=== PATIENT | male | born 1970 | race Caucasian/White ===

== ENCOUNTER 2018-12-15 19:18 | Inpatient (IN) | payer MEDICARE, OTHER ==
--- OUTSIDE RECORDS SUMMARY | 2018-12-15 19:20 | XMS REPORT ---
:1970 [facility] [address] [place] [address] Dr. Verdin [address] [place] [id number] Care Team Providers Name Role Phone Unavailable Unavailable Unavailable Problems This patient has no known problems. Allergies, Adverse Reactions, Alerts This patient has no known allergies or adverse reactions. Medications This patient has no known medications.
[2018-12-15 20:08] LABS: Absolute Lymphocytes (CBC) 1.8 K/uL (0.7-4.9); Eosinophils % 2.3 % (0-4.4); Hematocrit 43.8 % (39.6-49.0); MPV 8.6 fL (7.6-11.3); Monocytes % 6.2 % (3.3-12.3); RBC Red Blood Cell Count 4.96 M/uL (4.33-5.43)
[2018-12-15] MEDS ORDERED: FENTANYL CITR 100 MCG/2 ML ONE ×2 (20:26→22:26)
[2018-12-15] MEDS ORDERED: NA CHLORIDE 0.9% 1,000 ML ONE ×2 (20:27→21:58)
[2018-12-15 20:29] LABS: ALT/SGPT 26 U/L (12-78); AST/SGOT 12 U/L (15-37); Albumin 3.7 g/dL (3.4-5.0); Alkaline Phosphatase 70 U/L (45-117); BUN Blood Urea Nitrogen 15 mg/dL (7-18); Bicarbonate 25 mmol/L (21-32); Bilirubin Direct < 0.1 mg/dL (0-0.2); Bilirubin Total 0.2 mg/dL (0.2-1.0); Glucose Level 134 mg/dL (74-106); Lipase 456 U/L (73-393); Potassium 3.9 mmol/L (3.5-5.1); Protein, Total 7.1 g/dL (6.4-8.2); Sodium Level 141 mmol/L (136-145)
--- NOTE | 2018-12-15 20:42 | RAD REPORT ---
EXAM DESCRIPTION: US - Abdomen Exam Limited - 12/15/2018 8:31 pm CLINICAL HISTORY: Abdominal pain. COMPARISON: None. FINDINGS: The gallbladder is contracted limiting evaluation. A gallstone is not seen. Gallbladder wa ll is not thickened The biliary tree is normal caliber. IMPRESSION: An obvious gallstone is not seen although evaluation is limited as the gallbladder is co nsiderably contracted
--- NOTE | 2018-12-15 22:03 | ER ---
Nurse's Notes [facility] Name: Kyaw Sheldon Age: 48 yrs Sex: Male : 1970 Arrival Date: 12/15/2018 Time: 19:28 Bed 28 Private MD: Diagnosis: Upper abdominal pain, unspecified;elevated lipase Presentation: 12/15 19:35 Presenting complaint: Patient states: "gall bladder attack for 3 days". Care prior to aj arrival: None. 19:35 Acuity: NEYDA 3 19:35 Method Of Arrival: Ambulatory 23:31 Transition of care: patient was not received from another setting of care. Onset of ca1 symptoms was December 15, 2018. Risk Assessment: Do you want to hurt yourself or someone else? Patient reports no desire to harm self or others. Initial Sepsis Screen: Does the patient meet any 2 criteria? No. Patient's initial sepsis screen is negative. Does the patient have a suspected source of infection? No. Patient's initial sepsis screen is negative. Triage Assessment: 19:36 General: Appears in no apparent distress. uncomfortable, Behavior is calm, cooperative, aj appropriate for age. Pain: Complains of pain in epigastric area and right upper quadrant. Neuro: Level of Consciousness is awake, alert, obeys commands, Oriented to person, place, time, situation, Appropriate for age. Respiratory: Airway is patent Respiratory effort is even, unlabored, Respiratory pattern is regular, symmetrical. GI: Reports upper abdominal pain, nausea, vomiting. Derm: Skin is intact, is healthy with good turgor, Skin is pink, warm \\T\\ dry. normal. Historical: - Allergies: 19:36 No Known Allergies; aj - Immunization history:: Adult Immunizations up to date. - Ebola Screening: : Patient negative for fever greater than or equal to 101.5 degrees Fahrenheit, and additional compatible Ebola Virus Disease symptoms Patient denies exposure to infectious person Patient denies travel to an Ebola-affected area in the 21 days before illness onset No symptoms or risks identified at this time. - Social history:: Smoking status: Patient uses tobacco products, smokes one-half pack cigarettes per day. Screenin:45 Abuse screen: Denies threats or abuse. Denies injuries from another. Nutritional ca1 screening: No deficits noted. Tuberculosis screening: No symptoms or risk factors identified. Fall Risk IV access (20 points). Assessment: 19:45 General: Appears in no apparent distress. comfortable, Behavior is calm, cooperative, ca1 appropriate for age. Pain: Complains of pain in abdomen and right upper quadrant and epigastric area Pain radiates to back Pain currently is 9 out of 10 on a pain scale. Quality of pain is described as sharp, stabbing, Pain began 2-3 days ago. Is continuous, Aggravated by eating. Neuro: Level of Consciousness is awake, alert, obeys commands, Oriented to person, place, time, situation. Cardiovascular: Heart tones S1 S2 present Capillary refill < 3 seconds Patient's skin is warm and dry. Respiratory: Airway is patent Respiratory effort is even, unlabored, Respiratory pattern is regular, symmetrical, Breath sounds are clear bilaterally. GI: Abdomen is flat, non-distended, Bowel sounds present X 4 quads. 19:45 GI: Abd is soft and non tender X 4 quads. Reports nausea. ca1 19:45 : No deficits noted. No signs and/or symptoms were reported regarding the ca1 genitourinary system. EENT: No deficits noted. No signs and/or symptoms were reported regarding the EENT system. Derm: Skin is intact, is healthy with good turgor, Skin is pink, warm \\T\\ dry. Musculoskeletal: Circulation, motion, and sensation intact. Capillary refill < 3 seconds, Range of motion: intact in all extremities. 20:55 Reassessment: Patient appears in no apparent distress at this time. Patient and/or ca1 family updated on plan of care and expected duration. Pain level reassessed. Patient is alert, oriented x 3, equal unlabored respirations, skin warm/dry/pink. 21:40 Reassessment: Patient appears in no apparent distress at this time. Patient and/or ca1 family updated on plan of care and expected duration. Pain level reassessed. Patient is alert, oriented x 3, equal unlabored respirations, skin warm/dry/pink. 22:37 Reassessment: Patient appears in no apparent distress at this time. Patient and/or ca1 family updated on plan of care and expected duration. Pain level reassessed. Patient is alert, oriented x 3, equal unlabored respirations, skin warm/dry/pink. 23:45 Reassessment: Patient appears in no apparent distress at this time. Patient is alert, ca1 oriented x 3, equal unlabored respirations, skin warm/dry/pink. Vital Signs: 19:36 BP 182 / 89; Pulse 86; Resp 19; Temp 98.4; Pulse Ox 98% on R/A; Weight 104.33 kg; aj Height 6 ft. 1 in. (185.42 cm); 20:31 BP 143 / 83; Pulse 72; Resp 17; Pulse Ox 98% on R/A; ca1 21:29 BP 137 / 88; Pulse 69; Resp 17 S; Temp 98.2(O); Pulse Ox 98% on R/A; ca1 22:41 BP 117 / 80; Pulse 64; Resp 16 S; Pulse Ox 98% on R/A; ca1 23:42 BP 122 / 77; Pulse 63; Resp 18 S; Temp 98.4; Pulse Ox 99% on R/A; ca1 19:36 Body Mass Index 30.34 (104.33 kg, 185.42 cm) aj ED Course: 19:28 Patient arrived in ED. es 19:34 Charmaine Cleveland [facility]-C [facility] snw 19:34 Osmel Yost MD is Attending Physician. snw 19:36 Triage completed. aj 19:36 Arm band placed on left wrist. Patient placed in an exam room. aj 19:45 Patient has correct armband on for positive identification. Placed in gown. Bed in low ca1 position. Call light in reach. Side rails up X 1. surveillance monitor on. Pulse ox on. NIBP on. Warm blanket given. 19:53 Karena Lindsey, RN is Primary Nurse. ca1 20:00 No provider procedures requiring assistance completed. Inserted saline lock: 20 gauge ca1 in left Blood collected. 20:23 Patient taken to ultrasound. via wheelchair. ca1 20:32 US Abdomen Limited In Process Unspecified. EDMS 21:18 CT Abd/Pelvis - IV Contrast Only In Process Unspecified. EDMS 22:01 Aaron Ramirez MD is Hospitalizing Provider. snw 23:31 Patient admitted, IV remains in place. ca1 Administered Medications: 20:17 Drug: fentaNYL (PF) 50 mcg Route: IVP; Site: left antecubital; ca1 21:45 Follow up: Response: No adverse reaction; Pain is unchanged, physician notified ca1 20:32 Drug: Zofran 4 mg Route: IVP; Site: left antecubital; ca1 21:45 Follow up: Response: No adverse reaction; Nausea is decreased ca1 20:46 Drug: NS 0.9% 1000 ml Route: IV; Rate: 1 bolus; Site: left antecubital; ca1 21:45 Follow up: Urine output 230 ml; Response: No adverse reaction; IV Status: Completed ca1 infusion 21:45 Drug: NS 0.9% 1000 ml Route: IV; Rate: 125 ml/hr; Site: left antecubital; ca1 23:20 Follow up: IV Status: Infusion continued upon admission ca1 22:13 Drug: fentaNYL (PF) 50 mcg Route: IVP; Site: left antecubital; ca1 23:32 Follow up: Response: No adverse reaction; Pain is decreased ca1 22:47 Drug: Phenergan 6.25 mg Route: IVP; Site: left antecubital; ca1 23:31 Follow up: Response: No adverse reaction; Nausea is decreased ca1 Output: 21:45 Urine: 230ml; Total: 230ml. ca1 Outcome: 22:02 Decision to Hospitalize by Provider. snw 23:42 Admitted to Tele accompanied by tech, via wheelchair, room 430, with chart, Report ca1 called to Frederick Jensen RN 23:42 Condition: stable 23:42 Instructed on the need for admit. 12/16 00:19 Patient left the ED. ca1 Signatures: Dispatcher [employer] Jie Lehman, RN RN Charmaine Leyva, COMBAT SYSTEMS ENGINEER-C COMBAT SYSTEMS ENGINEER-Carly Reyez Cheryl, RN RN ca1 Corrections: (The following items were deleted from the chart) 12/15 23:52 23:45 Reassessment: Patient appears in no apparent distress at this time. Patient is ca1 alert, oriented x 3, equal unlabored respirations, skin warm/dry/pink. ca1
--- NOTE | 2018-12-15 22:04 | EDPHYS ---
Physician Documentation [facility] Name: Kyaw Sheldon Age: 48 yrs Sex: Male : 1970 Arrival Date: 12/15/2018 Time: 19:28 Bed 28 Private MD: ED Physician Osmel Yost HPI: 12/15 20:29 This 48 yrs old Male presents to ER via Ambulatory with complaints of snw Abdominal Pain. 20:29 The patient presents with abdominal pain in the upper abdomen. Onset: The snw symptoms/episode began/occurred suddenly, 3 day(s) ago, and became persistent. Associated signs and symptoms: none. The symptoms are described as sharp, shooting. Severity of pain: At its worst the pain was moderate severe. The patient has not experienced similar symptoms in the past. It is unknown whether or not the patient has recently seen a physician. + tenorio's. Historical: - Allergies: 19:36 No Known Allergies; aj - Immunization history:: Adult Immunizations up to date. - Ebola Screening: : Patient negative for fever greater than or equal to 101.5 degrees Fahrenheit, and additional compatible Ebola Virus Disease symptoms Patient denies exposure to infectious person Patient denies travel to an Ebola-affected area in the 21 days before illness onset No symptoms or risks identified at this time. - Social history:: Smoking status: Patient uses tobacco products, smokes one-half pack cigarettes per day. ROS: 20:29 Constitutional: Negative for fever, chills, and weight loss, Eyes: Negative for injury, snw pain, redness, and discharge, ENT: Negative for injury, pain, and discharge, Neck: Negative for injury, pain, and swelling, Cardiovascular: Negative for chest pain, palpitations, and edema, Respiratory: Negative for shortness of breath, cough, wheezing, and pleuritic chest pain, Back: Negative for injury and pain, : Negative for injury, bleeding, discharge, and swelling, MS/Extremity: Negative for injury and deformity, Skin: Negative for injury, rash, and discoloration, Neuro: Negative for headache, weakness, numbness, tingling, and seizure. 20:29 Abdomen/GI: Positive for abdominal pain. Exam: 20:39 Head/Face: Normocephalic, atraumatic. Eyes: Pupils equal round and reactive to light, snw extra-ocular motions intact. Lids and lashes normal. Conjunctiva and sclera are non-icteric and not injected. Cornea within normal limits. Periorbital areas with no swelling, redness, or edema. ENT: Nares patent. No nasal discharge, no septal abnormalities noted. Tympanic membranes are normal and external auditory canals are clear. Oropharynx with no redness, swelling, or masses, exudates, or evidence of obstruction, uvula midline. Mucous membranes moist. Neck: Trachea midline, no thyromegaly or masses palpated, and no cervical lymphadenopathy. Supple, full range of motion without nuchal rigidity, or vertebral point tenderness. No Meningismus. Chest/axilla: Normal chest wall appearance and motion. Nontender with no deformity. No lesions are appreciated. Cardiovascular: Regular rate and rhythm with a normal S1 and S2. No gallops, murmurs, or rubs. Normal PMI, no JVD. No pulse deficits. Respiratory: Lungs have equal breath sounds bilaterally, clear to auscultation and percussion. No rales, rhonchi or wheezes noted. No increased work of breathing, no retractions or nasal flaring. Back: No spinal tenderness. No costovertebral tenderness. Full range of motion. Skin: Warm, dry with normal turgor. Normal color with no rashes, no lesions, and no evidence of cellulitis. MS/ Extremity: Pulses equal, no cyanosis. Neurovascular intact. Full, normal range of motion. Neuro: Awake and alert, GCS 15, oriented to person, place, time, and situation. Cranial nerves II-XII grossly intact. Motor strength 5/5 in all extremities. Sensory grossly intact. Cerebellar exam normal. Normal gait. Psych: Awake, alert, with orientation to person, place and time. Behavior, mood, and affect are within normal limits. 20:39 Constitutional: The patient appears alert, comfortable, anxious, in obvious pain. 20:39 Abdomen/GI: Inspection: abdomen appears normal, Bowel sounds: normal, Palpation: moderate abdominal tenderness, in the right upper quadrant, Indicators: Tenorio's sign is positive. Vital Signs: 19:36 BP 182 / 89; Pulse 86; Resp 19; Temp 98.4; Pulse Ox 98% on R/A; Weight 104.33 kg; aj Height 6 ft. 1 in. (185.42 cm); 20:31 BP 143 / 83; Pulse 72; Resp 17; Pulse Ox 98% on R/A; ca1 21:29 BP 137 / 88; Pulse 69; Resp 17 S; Temp 98.2(O); Pulse Ox 98% on R/A; ca1 22:41 BP 117 / 80; Pulse 64; Resp 16 S; Pulse Ox 98% on R/A; ca1 23:42 BP 122 / 77; Pulse 63; Resp 18 S; Temp 98.4; Pulse Ox 99% on R/A; ca1 19:36 Body Mass Index 30.34 (104.33 kg, 185.42 cm) aj MDM: 19:43 Patient medically screened. snw 22:02 Data reviewed: vital signs, lab test result(s), radiologic studies. Data interpreted: snw Pulse oximetry: on room air is 98 %. Interpretation: normal. Response to treatment: the patient's symptoms have mildly improved after treatment. Physician consultation: Aaorn Ramirez MD was called at 22:03, was contacted at 22:03, regarding admission, to the telemetry unit. and will see patient. 12/15 19:44 Order name: Basic Metabolic Panel; Complete Time: 20:31 w 12/15 19:44 Order name: CBC with Diff; Complete Time: 20:14 snw 12/15 19:44 Order name: Hepatic Function; Complete Time: 20:31 snw 12/15 19:44 Order name: Lipase; Complete Time: 20:31 snw 12/15 19:44 Order name: US Abdomen Limited; Complete Time: 20:45 [facility] 12/15 21:10 Order name: Troponin (emerg Dept Use Only); Complete Time: 22:00 w 12/15 20:31 Order name: CT Abd/Pelvis - IV Contrast Only snw 12/15 23:05 Order name: Abdomen Exam Complete EDNJ 12/15 19:44 Order name: IV Saline Lock; Complete Time: 20:08 snw 12/15 19:44 Order name: Labs collected and sent; Complete Time: 20:08 w 12/15 20:38 Order name: EKG; Complete Time: 20:51 snw 12/15 20:38 Order name: EKG - Nurse/Tech; Complete Time: 21:05 sn 12/15 23:03 Order name: CONS Physician Consult EDNJ 12/15 23:03 Order name: NPO EDMS Administered Medications: 20:17 Drug: fentaNYL (PF) 50 mcg Route: IVP; Site: left antecubital; ca1 21:45 Follow up: Response: No adverse reaction; Pain is unchanged, physician notified ca1 20:32 Drug: Zofran 4 mg Route: IVP; Site: left antecubital; ca1 21:45 Follow up: Response: No adverse reaction; Nausea is decreased ca1 20:46 Drug: NS 0.9% 1000 ml Route: IV; Rate: 1 bolus; Site: left antecubital; ca1 21:45 Follow up: Urine output 230 ml; Response: No adverse reaction; IV Status: Completed ca1 infusion 21:45 Drug: NS 0.9% 1000 ml Route: IV; Rate: 125 ml/hr; Site: left antecubital; ca1 23:20 Follow up: IV Status: Infusion continued upon admission ca1 22:13 Drug: fentaNYL (PF) 50 mcg Route: IVP; Site: left antecubital; ca1 23:32 Follow up: Response: No adverse reaction; Pain is decreased ca1 22:47 Drug: Phenergan 6.25 mg Route: IVP; Site: left antecubital; ca1 23:31 Follow up: Response: No adverse reaction; Nausea is decreased ca1 Disposition: 12/16 00:19 Co-signature as Attending Physician, Osmel Yost MD. rn Disposition: 12/15/18 22:02 Hospitalization ordered by Aaron Ramirez for Inpatient Admission. Preliminary diagnosis are Upper abdominal pain, unspecified, elevated lipase. - Bed requested for Telemetry/MedSurg (Inpatient). - Status is Inpatient Admission. ca1 - Condition is Stable. - Problem is new. - Symptoms are unchanged. UTI on Admission? No Signatures: Dispatcher [employer] EDNJ Jie Kam RN Charmaine Tate, EARTH SCIENCE TEACHER-C EARTH SCIENCE TEACHER-Csnw Osmel Yost MD MD rn Garcia, Cindy, RN RN cg Acob, Cheryl, RN RN ca1 Corrections: (The following items were deleted from the chart) 12/15 23:11 22:02 Hospitalization Ordered by Aaron Ramirez MD for Inpatient Admission. Preliminary cg diagnosis is Upper abdominal pain, unspecified; elevated lipase. Bed requested for Telemetry/MedSurg (Inpatient). Status is Inpatient Admission. Condition is Stable. Problem is new. Symptoms are unchanged. UTI on Admission? No. snw 12/16 00:19 12/15 23:11 12/15/2018 22:02 Hospitalization Ordered by Aaron Ramirez MD for Inpatient ca1 Admission. Preliminary diagnosis is Upper abdominal pain, unspecified; elevated lipase. Bed requested for Telemetry/MedSurg (Inpatient). Status is Inpatient Admission. Condition is Stable. Problem is new. Symptoms are unchanged. UTI on Admission? No. cg
[2018-12-15] MEDS ORDERED: ACETAMINOPHEN 500 MG TAB PO PRN (22:55)
[2018-12-15] MEDS ORDERED: PROMETHAZINE 25 MG/ML VIAL ONE (23:00)
[2018-12-16] MEDS: NA CHLORIDE 0.9% 1,000 ML IV SCH ×4 (00:15→19:00)
[2018-12-16] MEDS: HYDROMORPHONE HCL 1 MG/ML INJ IV PRN ×2 (01:13→05:45)
[2018-12-16] MEDS: Levofloxacin500mg IV 500 MG/100 ML BAG IV SCH ×2 (01:15→22:18)
[2018-12-16] MEDS: METRONIDAZOLE 500mg IVPB 500 MG/100 ML BAG IV SCH ×4 (01:15→17:01)
[2018-12-16 02:46] VITALS: BMI 29.1
[2018-12-16 04:22] LABS: Absolute Lymphocytes (CBC) 1.9 K/uL (0.7-4.9); Basophils % 0.9 % (0-1.3); Hematocrit 39.3 % (39.6-49.0); MPV 8.9 fL (7.6-11.3); Monocytes % 8.2 % (3.3-12.3); RBC Red Blood Cell Count 4.41 M/uL (4.33-5.43)
[2018-12-16 04:45] LABS: Bilirubin Total 0.1 mg/dL (0.2-1.0); Magnesium 2.2 mg/dL (1.8-2.4); Phosphorus 3.7 mg/dL (2.5-4.9); Potassium 4.2 mmol/L (3.5-5.1); Protein, Total 5.7 g/dL (6.4-8.2)
[2018-12-16 04:49] LABS: Protime INR 0.93
[2018-12-16 04:50] LABS: Urine Appearance CLEAR; Urine Bilirubin NEGATIVE (NEG); Urine Blood NEGATIVE (NEG); Urine Color YELLOW; Urine Glucose NEGATIVE (NEG); Urine Protein NEGATIVE (NEG); Urine Specific Gravity 1.025 (1.005-1.030); Urine Urobilinogen 0.2 mg/dL (0.2-1.0)
[2018-12-16 04:53] LABS: Urine Microscopic Reflex NO UMIC
[2018-12-16] MEDS: ONDANSETRON 4 MG/2 ML VIAL IV PRN ×3 (07:32→20:58)
--- NOTE | 2018-12-16 08:46 | RAD REPORT ---
EXAM DESCRIPTION: US - Abdomen Exam Complete - 12/16/2018 8:06 am CLINICAL HISTORY: Abdominal pain COMPARISON: CT study December 15 FINDINGS: Gallbladder size is normal on today's examination. No gallstones, wall thickening or peric holecystic fluid. Common bile duct is normal with no common duct stone identified. Liver is 16 cm in maximum dimension. No focal liver lesion identifiable. Slightly coarsened liver par enchymal echogenicity may reflect a borderline or mild fatty infiltration. Doppler evaluation shows n ormal velocity and flow direction of the portal vein. Spleen is 10 cm with no focal splenic abnormali ty. The pancreas is grossly normal with the pancreatic tail obscured by bowel. Prior day CT study elaina wed no pancreatic tail suspicious finding. No hydronephrosis or suspicious mass in either kidney. Aorta and IVC show no suspicious findings. No ascites or bulky lymphadenopathy. IMPRESSION: Gallbladder is normal size and normal in appearance on today's examination. No biliary t ree abnormality. Liver appears borderline or mildly fatty infiltrated.
[2018-12-16] MEDS: MORPHINE 4 MG/ML SYR IV PRN ×2 (09:33→14:33)
--- NOTE | 2018-12-16 10:09 | EKG ---
Test Date: 2018-12-15 Test Time: 20:51:39 Fitness Sales Consultant: [id number] MEASUREMENT RESULTS: Intervals: Rate: 70 [place]: 154 QRSD: 96 QT: 380 QTc: 410 [place]: P: 150 [place]: 154 QRS: 177 T: 178 INTERPRETIVE STATEMENTS: Suspect arm lead reversal, interpretation assumes no reversal Unusual P axis, possible ectopic atrial rhythm Incomplete right bundle branch block Lateral infarct, age undetermined Inferior infarct, age undetermined Abnormal ECG No previous ECG available for comparison Electronically Signed On 12-16-18 10:07:26 CDT by Afshin Jovel
--- NOTE | 2018-12-16 10:55 | RAD REPORT ---
EXAM DESCRIPTION: CT - Abdomen Pelvis W Contrast - 12/16/2018 7:14 am CLINICAL HISTORY: 48 years Male, ABD PAIN COMPARISON: None. TECHNIQUE: 5 mm arterial phase axial images of the abdomen were obtained with intravenous contrast a long with 3 mm coronal and sagittal reformatted images. 5 mm venous phase axial images of the abdomen and pelvis were obtained.. This exam was performed according to our departmental dose-optimization program, which includes autom ated exposure control, adjustment of the mA and/or kV according to patient size and/or use of iterati ve reconstruction technique. INTRAVENOUS CONTRAST: Not documented. Please refer to medical record. FINDINGS: Lung bases: Normal. Liver: Normal. Spleen: Normal. Pancreas: Normal. Gallbladder: Normal. Right adrenal gland: Normal. Left adrenal gland: Normal. Right kidney: Normal. Left kidney: There is a nonobstructing medullary stone in the lower pole of the left kidney measuring 0.5 x 0.3 cm.. Retroperitoneal structures: Normal. Bowel survey: There is increased stool throughout the colon. The appendix is unremarkable. The distal ileum is unremarkable.. Urinary bladder: Normal. Uterus and adnexa: Normal. Prostate gland: Normal size. Peritoneal cavity: Normal. Mesentery structures: Normal. Abdominal wall: No hernia. Bony structures: No suspicious lesions. There is moderately severe posterior disc herniation at L3-L4 and mild posterior disc herniation L4-L5 with secondary effacement of the anterior thecal sac. IMPRESSION: 1. Increased stool throughout the colon. 2. Nonobstructing stone left kidney. 3. 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 Electronically signed by: Jhony Rolon MD 12/15/2018 9:32 PM CDT Due to temporary technical issues with the PACS/Fluency reporting system, reports are being signed by the in house radiologist as a courtesy to ensure prompt reporting. The interpreting radiologist is f ully responsible for the content of the report.
--- NOTE | 2018-12-16 11:48 | P.HP ---
Certification for Inpatient Patient admitted to: Inpatient With expected LOS: >2 Midnights Patient will require the following post-hospital care: None Practitioner: I am a practitioner with admitting privileges, knowledge of patient current condition, hospital course, and medical plan of care. Services: Services provided to patient in accordance with Admission requirements found in Title 42 Section 412.3 of the Code of Federal Regulations Patient History Date of Service: 12/15/18 Reason for admission: ABDOMINAL PAIN/ RIGHT UPPER QUADRANT TENDERNESS /CHEST PAIN History of Present Illness: PATIENT IS A 40-YEAR-OLD GENTLEMAN CAME TO THE HOSPITAL WITH CHEST DISCOMFORT. HOWEVER, ON FURTHER EVALUATION IT WAS NOTED THAT HIS PAIN WAS MAINLY IN THE EPIGASTRIC AREA. HE IS ALSO HAVING RIGHT UPPER QUADRANT TENDERNESS WELL. PATIENT WAS SEEN IN THE ER AND WAS FOUND TO HAVE RIGHT UPPER QUADRANT TENDERNESS. HE ALSO HAD DSOUZA SIGN. CLINICALLY HE APPEARS TO HAVE ACUTE CHOLECYSTITIS. HIS LABS ARE NOT COMPLETELY INDICATIVE OF THIS. WE WILL GET FURTHER IMAGING STUDY TO FURTHER EVALUATE PATIENT'S CLINICAL STATUS. HE IS HAVING SIGNIFICANT PAIN IN THE RIGHT UPPER QUADRANT. HE WAS TOLD IN THE PAST THAT HE NEEDS HIS GALLBLADDER TAKEN OUT. HE STATES THAT HE WAS JUST BUSY NEVER TOOK THE TIME TO GET THIS DONE. HE HAS BEEN HAVING MORE AND MORE PAIN ON THAT SIDE AND IT BECAME VERY SEVERE LAST NIGHT. HE WOULD PREFER TO A GET SOMETHING DONE ABOUT THIS SOONER THAN LATER. WE WILL NEED TO DISCUSS WITH SURGERY AND CASE MANAGEMENT REGARDING PATIENT'S PLAN OF CARE. Allergies No Known Allergies Allergy (Verified 12/16/18 00:40) Home Medications: NK [No Home Meds] 12/16/18 - Past Medical/Surgical History Has patient received pneumonia vaccine in the past: No Diabetic: No Past Medical History: Patient denies medical history -: Left knee orthscopic surgery (meniscus) - Family History Father Family History: Reviewed- Non-Contributory - Social History Smoking Status: Never smoker Alcohol use: No CD- Drugs: No Caffeine use: No Place of Residence: Home Review of Systems 10-point ROS is otherwise unremarkable Physical Examination - Vital Signs Temperature: 97.4 F Blood Pressure: 100/60 Pulse: 57 Respirations: 20 Pulse Ox (%): 96 - Physical Exam General: Alert, In no apparent distress, Oriented x3 HEENT: Atraumatic, PERRLA, Mucous membr. moist/pink, EOMI, Sclerae nonicteric Neck: Supple, 2+ carotid pulse no bruit, No LAD, Without JVD or thyroid abnormality Respiratory: Clear to auscultation bilaterally, Normal air movement Cardiovascular: Regular rate/rhythm, Normal S1 S2 Gastrointestinal: Hypoactive, Soft and benign, No rebound, No guarding, Tenderness ( MAINLY IN THE RIGHT UPPER QUADRANT WITH DSOUZA SIGN) Musculoskeletal: No clubbing, No swelling, No tenderness Integumentary: No rashes Neurological: Normal gait, Normal speech, Normal strength at 5/5 x4 extr, Normal tone, Sensation intact, Cranial nerves 3-12 intact, Normal affect Lymphatics: No axilla or inguinal lymphadenopathy - Studies Laboratory Data (last 24 hrs) 12/15/18 20:00: WBC 7.5, Hgb 14.6, Hct 43.8, Plt Count 278 12/15/18 20:00: Sodium 141, Potassium 3.9, BUN 15, Creatinine 1.13, Glucose 134 H, Total Bilirubin 0.2, AST 12 L, ALT 26, Alkaline Phosphatase 70, Lipase 456 H Assessment & Plan - Problems (Diagnosis) (1) Acute cholecystitis Current Visit: Yes Status: Acute (2) Chest pain, rule out acute myocardial infarction Current Visit: Yes Status: Acute - Plan PLAN: 1. SERIAL TROPONINS AND EKG 2. CARDIOLOGY CONSULTATION IF ANY ABNORMAL FINDINGS 3. ECHOCARDIOGRAM 4. IV MORPHINE FOR PAIN 5. IV FLUIDS AND IV ANTIBIOTICS/SURGERY EVAL 6. GI AND DVT PROPHYLAXIS Discharge Plan: Home Plan to discharge in: Greater than 2 days - Advance Directives Does patient have a Living Will: No Does patient have a Durable POA for Healthcare: No - Code Status/Comfort Care Code Status Assessed: Yes Code Status: Full Code Critical Care: No Time Spent Managing PTS Care (In Minutes): 45
--- NOTE | 2018-12-16 15:45 | CON ---
Date of Consultation: 12/16/2018 Brief History Of Present Illness: The patient is a 48-year-old male, who presents to the [facility] with ambulatory complaints of pain beginning approximately 3 days ago, persistent, constant in the epigastric region with radiation through to the back. He has never had similar episodes before in e past. It is sharp, stabbing, and shooting through, it is of moderate severity at its worst. He hood s not had similar episodes before in the past. He is unaware of any food causing this to trigger and the pain does not move to the right upper or left upper sides or anywhere else. It is associated wi mild nausea. No vomiting. It is not associated with any change in bowel or bladder habits. He h as had no sick contacts. No recent travel. No new food exposures. Past Medical History: Negative. Past Surgical History: He has had knee surgery on the left knee earlier this month. Allergies: NO KNOWN DRUG ALLERGIES. Medications: None. Social History: Denies alcohol, smoking or recreational drug use of any kind. Physical Examination: Vital Signs: At the time of examination, his BMI is 29.1. His blood pressure 100/60, pulse 57, resp iratory rate 20, temperature 97.4. General: He is awake, alert, and oriented. Psychiatric: Appropriate and conversive. HEENT: Normocephalic. Sclerae anicteric. Mucous membranes moist. Oropharynx clear. Neck: Supple. No JVD. Chest: Normal expansion and excursion. Cardiovascular: Regular rate and rhythm. Pulmonary: Clear to auscultation bilaterally. Abdomen: Soft with mild epigastric tenderness to palpation. No rebound. No guarding. No focal per itonitis. Negative Tenorio sign. No CVA angle tenderness. Extremities: No clubbing, cyanosis, or edema. Skin: Warm and dry. Laboratory Data: Reveals a white blood count of 5.9, hemoglobin is 13.2, hematocrit 39.3, platelet c ount is 222. His PT 11.0, INR 0.93, PTT was 31.7. Sodium 143, potassium 4.2, chloride 110, carbon d ioxide 28, BUN 12, creatinine 0.9, glucose is 89, calcium 7.5, phosphorus 3.7, magnesium 2.2, total b ilirubin 0.2, now to 0.1 today, AST is 10, ALT 20, alkaline phosphatase is 54. His lipase on admissi on was 456, now is 283. UA is essentially negative down the line. He had multiple imaging studies i ncluding an abdominal ultrasound performed on 12/15, which showed only a contracted gallbladder. No other findings. He had a CT scan of the abdomen and pelvis, which showed a normal gallbladder at jason t time and only showed stool throughout the colon essentially and some spinal findings, but nothing r elated to the biliary tract. He had an abdominal ultrasound repeated this morning, 12/16/2018, which was officially read as gallbladder is normal in size and normal in appearance on today's exam. No b iliary tree abnormality. There are no gallstones, no wall thickening or pericholecystic fluid. Comm on duct is normal. No common duct stone identified. The liver appears borderline with mild fatty in filtration. Assessment And Plan: This is a 48-year-old male, who comes in with signs of pancreatitis of uncertai n etiology. I do not find the patient has evidence of gallstone pancreatitis. As such, I recommend GI consultation and continued workup for the etiology of his pancreatitis. I will order a lipid pane l to begin this process. I will follow along with you with serial abdominal exams. Thank you for this interesting consult. CARLEY/LUIS Voice ID: [id number] Report ID: [id number]
[2018-12-16] MEDS: ENOXAPARIN 40 MG/0.4 ML SQ SCH (17:01)
[2018-12-16] MEDS: HYDROCODONE/APAP 7.5/325 MG TAB PO PRN ×2 (17:10→22:17)
--- NOTE | 2018-12-16 17:16 | PN ---
Date of Progress Note: 12/16/2018 Subjective: The patient seen and examined. Chart reviewed and case discussed with RN and Dr. Julio mcmanus as well as Dr. Swain. The patient continues to have abdominal pain. No nausea or vomiting. Medications: List reviewed. Physical Examination: Vital Signs: Temperature 98.3, heart rate 64, blood pressure 104/58, respirations 17, and O2 of 97% on room air. General: Awake, alert, oriented x3. Mild distress due to pain. Obese. CV: S1, S2. Regular rate and rhythm. Peripheral pulses present. Respiratory: Moving air well bilaterally. No wheezing or stridor. Gastrointestinal: Abdomen is mildly distended. Tenderness to palpation. No guarding or rigidity. Bowel sounds hypoactive. Extremities: No clubbing, cyanosis, or edema. Neurologic: Nonfocal. Laboratory Data: Sodium 143, potassium 4.2, chloride 110, CO2 28, BUN 12, creatinine 0.96, glucose 8 9, calcium 7.5, phosphorus 3.7, magnesium 2.2. Troponin less than 0.02, triglycerides 180, cholester ol 157, LDL 87, HDL 34, lipase 283. WBC 5.9, H and H 13.2 and 39.3, platelets 222, neutrophils 54%. Abdominal ultrasound shows gallbladder normal size and normal in appearance. On today's examination , no biliary tree abnormality. Liver appears borderline or mildly fatty infiltrated. Pancreas is gr ossly normal with the pancreatic tail obscured by bowel. Prior day CT study showed no pancreatic herrera l suspicious finding. Assessment And Plan: A 48-year-old male with: 1.Acute cholecystitis. The patient's repeat ultrasound does not show gallbladder inflammation or wa ll thickening. Likely he has pancreatitis. 2.Acute pancreatitis, unclear etiology. Triglycerides are only mildly elevated. The patient denies any alcohol use. No ductal stones visualized with imaging studies so far. Lipase level has improve d. We will start on liquids and advance to low-fat diet. Consult GI. 3.Atypical chest pain, acute coronary syndrome ruled out. Cardiac enzymes negative. 4.Overweight, BMI 29. 5.Fatty liver disease. The patient has been counseled. 6.Hypocalcemia. 7.Mixed hyperlipidemia, elevated triglycerides and low HDL. The patient may benefit from statin med ication, diet and exercise regimen first. 8.Deep venous thrombosis prophylaxis with Lovenox. Plan: We will continue prophylactic antibiotics for now. Consult GI, Dr. Ba does not recommend gallbladder surgery at this time due to no acute indication. We will continue to monitor closely. Discharge in next 24-48 hours depending on clinical response. /LUIS Voice ID: [id number] Report ID: [id number]
[2018-12-16] MEDS ORDERED: KETOROLAC 30 MG/ML INJ IV ONE (18:52)
[2018-12-16] MEDS: MAGNESIUM HYDROXIDE 8% 30 ML PO PRN (22:17)
[2018-12-16] MEDS: METOCLOPRAMIDE 10 MG/2mL INJ IV SCH (22:48)
[2018-12-17] MEDS: METRONIDAZOLE 500mg IVPB 500 MG/100 ML BAG IV SCH ×4 (00:09→17:19)
[2018-12-17] MEDS: NA CHLORIDE 0.9% 1,000 ML IV SCH (03:34)
[2018-12-17] MEDS ORDERED: PROMETHAZINE 25 MG TABLET PO PRN (04:55)
[2018-12-17 06:53] LABS: Ferritin 111.8 ng/mL (26-388)
[2018-12-17] MEDS: HYDROCODONE/APAP 7.5/325 MG TAB PO PRN ×3 (08:04→21:41)
[2018-12-17] MEDS: ENOXAPARIN 40 MG/0.4 ML SQ SCH (09:58)
--- NOTE | 2018-12-17 10:44 | RAD REPORT ---
EXAM DESCRIPTION: NM - Hepatobiliary System W/ Ph - 12/17/2018 9:46 am CLINICAL HISTORY: Epigastric pain TECHNIQUE: The patient was administered 6.4 millicuries technetium Choletec intravenous and images o f the abdomen obtained for 40 minutes. Additional images were obtained at minutes FINDINGS: Liver demonstrates prompt radiotracer uptake. Activity is not seen within the gallbladder by 40 minutes. Images obtained at 2-1/2 hours demonstrate visualization of radiotracer within the gallbladder After the administration of Kinevac gallbladder ejection fraction equals 27% Patient complained of pain 510 prior to CCK which increased to 2009 during the administration o f CCK IMPRESSION: No evidence of acute cholecystitis Delayed radiotracer uptake within the gallbladder is a nonspecific finding but can be seen with chron ic cholecystitis Diminished gallbladder ejection fraction of 27% may indicate biliary dyskinesis. Normal value greater than 35%
[2018-12-17] MEDS ORDERED: SODIUM CHLORIDE 0.9% 10ML INJ IV PRN (11:12)
--- NOTE | 2018-12-17 11:21 | P.PN ---
Subjective Date of Service: 12/17/18 Chief Complaint: ABDOMINAL PAIN/ RIGHT UPPER QUADRANT TENDERNESS /CHEST PAIN Subjective: Improving (pain is improving but not resolved in epigastrium) Physical Examination - Vital Signs Temperature: 96.9 F Blood Pressure: 124/74 Pulse: 56 Respirations: 18 Pulse Ox (%): 98 - Physical Exam General: Alert, In no apparent distress, Cooperative Gastrointestinal: Other (soft, mild epigastric TTP, no rebound, no guarding, negative murphys) Assessment And Plan - Plan - abdominal pain minimal improvement - HIDA scan done, biliary dyskinesia - if symptoms do not improve and patient cannot tolerate diet, will plan for cholecystectomy
[2018-12-17] MEDS ORDERED: MORPHINE 2 MG/ML SYR IV ONE (11:29)
[2018-12-17] MEDS: SUCRALFATE 1 GM TABLET PO SCH ×3 (11:57→21:40)
[2018-12-17] MEDS: PANTOPRAZOLE 40 MG INJ IVP SCH ×2 (11:58→21:47)
--- NOTE | 2018-12-17 18:32 | PN ---
Date of Progress Note: 12/17/2018 Subjective: The patient was seen and examined, chart reviewed and case discussed with RN and Dr. Kulwinder manjarrez. The patient going down for HIDA scan today. Still complains of significant pain, having diffi culty moving around due to pain. Medications: List reviewed. Physical Examination: Vital Signs: Temperature 96.9, heart rate 56, blood pressure 124/74, respirations 18, O2 98% on room air. General: Awake, alert, oriented x3. Mild distress. Obese. CV: S1, S2. Regular rate and rhythm. Peripheral pulses present. Respiratory: Moving air well bilaterally. No wheezing. Gastrointestinal: Abdomen is soft. Tenderness to palpation in the right upper quadrant and epigastr ic region. Slight distention. No guarding or rigidity. Bowel sounds positive. Extremities: No clubbing, cyanosis, or edema. Neurologic: Nonfocal. Laboratory Data: Iron 66, TIBC 288, transferrin 206, ferritin 111. Alpha-1 antitrypsin, ceruloplasm in and tumor marker AFP are pending. Immunological studies are also pending. Hepatitis panel pendin g as well. Assessment: A 48-year-old male with: 1.Acute pancreatitis, unclear etiology, improving. The patient, however, still has significant amou nt of pain. We will advance diet as tolerated. GI on board. 2.Epigastric abdominal pain. We will start on IV PPI and Carafate. The patient will need EGD as an outpatient, may be enteritis or duodenitis. We will continue antiemetics and IV fluids, pain contro l. 3.Biliary dyskinesia. The patient's HIDA scan showed diminished gallbladder ejection fraction of 27 %, may indicate biliary dyskinesis, delayed radiotracer uptake within the gallbladder, nonspecific fi nding, but can be seen with chronic cholecystitis. Dr. Ba plans on cholecystectomy. 4.Atypical chest pain, ACS ruled out, likely related to above. 5.Fatty liver disease. Workup is underway. Serology and immunology markers pending. 6.Overweight, BMI 29. 7.Mixed hyperlipidemia with trial of diet and exercise initially. 8.Hypocalcemia, improved. 9.Deep venous thrombosis prophylaxis with Lovenox. Plan: Plan is for cholecystectomy by Surgery. SA/MODL Voice ID: [id number] Report ID: [id number]
[2018-12-17] MEDS: Levofloxacin500mg IV 500 MG/100 ML BAG IV SCH (21:48)
[2018-12-17] MEDS: METOCLOPRAMIDE 10 MG/2mL INJ IV SCH (23:00)
[2018-12-18] MEDS: METRONIDAZOLE 500mg IVPB 500 MG/100 ML BAG IV SCH ×4 (00:39→17:10)
[2018-12-18] MEDS: NA CHLORIDE 0.9% 1,000 ML IV SCH ×3 (00:39→15:19)
[2018-12-18] MEDS: HYDROCODONE/APAP 7.5/325 MG TAB PO PRN ×4 (02:57→21:02)
[2018-12-18] MEDS: MAGNESIUM HYDROXIDE 8% 30 ML PO PRN (02:57)
[2018-12-18 06:40] LABS: Bilirubin Total 0.2 mg/dL (0.2-1.0); Potassium 4.3 mmol/L (3.5-5.1); Protein, Total 5.7 g/dL (6.4-8.2)
[2018-12-18 06:44] LABS: Absolute Lymphocytes (CBC) 1.7 K/uL (0.7-4.9); Basophils % 1.1 % (0-1.3); Eosinophils % 4.2 % (0-4.4); Hematocrit 39.3 % (39.6-49.0); Lymphocytes % 35.6 % (15.3-44.8); MPV 8.6 fL (7.6-11.3); RBC Red Blood Cell Count 4.48 M/uL (4.33-5.43)
[2018-12-18] MEDS: SUCRALFATE 1 GM TABLET PO SCH ×4 (08:49→21:01)
[2018-12-18] MEDS: ONDANSETRON 4 MG/2 ML VIAL IV PRN (08:54)
[2018-12-18] MEDS: ENOXAPARIN 40 MG/0.4 ML SQ SCH (08:54)
[2018-12-18] MEDS: PANTOPRAZOLE 40 MG INJ IVP SCH ×2 (08:55→21:01)
[2018-12-18] MEDS: MORPHINE 2 MG/ML SYR IV PRN ×3 (11:10→23:44)
--- NOTE | 2018-12-18 16:17 | PN ---
Date of Progress Note: 12/18/2018 Subjective: The patient seen and examined. Chart reviewed and case discussed with RN. The patient still continues to have significant right upper quadrant abdominal pain, did not tolerate GI soft t, had nausea and does not have an appetite this morning. Medications: List reviewed. Physical Examination: Vital Signs: Temperature 97.4, heart rate 60, blood pressure 155/85, respirations 18, O2 98% on room air. General: Awake, alert, oriented x3. Ill-appearing male, in mild distress due to pain. CV: S1 and S2. Regular rate and rhythm. Respiratory: Moving air well bilaterally. Gastrointestinal: Abdomen is soft. Mild distention. Tenderness to palpation in the right upper joel drant. Bowel sounds positive. Extremities: No clubbing, cyanosis, or edema. Neurologic: Nonfocal. Laboratory Data: Sodium 144, potassium 4.3, chloride 109, CO2 30, BUN 8, creatinine 1.01, glucose 10 5, calcium 8, albumin 3. Tumor marker AFP, alpha-1 antitrypsin and ceruloplasmin are pending. WBC 4 .8, H and H 13.4 and 39.3, platelets 222. Hep panel pending. Immunology screen also pending. Assessment And Plan: A 48-year-old male with: 1.Acute pancreatitis, unclear etiology, improving. We will recheck lipase level in a.m. The patien t unable to tolerate GI soft diet. We will switch back to full liquids. Appreciate GI input. 2.Epigastric abdominal pain. Continue with IV PPI and Carafate. The patient will need EGD as an ou tpatient. 3.Biliary dyskinesia. Continues to have right upper quadrant abdominal pain. We will resume morphi ne IV. [place] does not help with the pain. 4.Non-intractable nausea and vomiting. Continue antiemetics. 5.Atypical chest pain, acute coronary syndrome ruled out. 6.Fatty liver disease. Workup pending. 7.Overweight, BMI 29. 8.Mixed hyperlipidemia. The patient will need a trial of exercise and diet regimen before statin. 9.Hypocalcemia, improving. 10.Deep venous thrombosis prophylaxis with Lovenox. Plan: Surgery recommending cholecystectomy. /NANCYL Voice ID: [id number] Report ID: [id number]
[2018-12-18] MEDS: Levofloxacin500mg IV 500 MG/100 ML BAG IV SCH (23:43)
[2018-12-19] MEDS: METRONIDAZOLE 500mg IVPB 500 MG/100 ML BAG IV SCH ×2 (00:52→05:59)
[2018-12-19] MEDS: MORPHINE 2 MG/ML SYR IV PRN ×4 (04:45→21:53)
[2018-12-19 05:53] LABS: Absolute Lymphocytes (CBC) 1.8 K/uL (0.7-4.9); Basophils % 0.9 % (0-1.3); Eosinophils % 3.9 % (0-4.4); Hematocrit 38.1 % (39.6-49.0); Lymphocytes % 32.7 % (15.3-44.8); MPV 8.4 fL (7.6-11.3); Monocytes % 9.9 % (3.3-12.3); RBC Red Blood Cell Count 4.38 M/uL (4.33-5.43)
[2018-12-19] MEDS: HYDROCODONE/APAP 7.5/325 MG TAB PO PRN ×3 (06:01→23:38)
[2018-12-19 06:13] LABS: Bilirubin Total 0.2 mg/dL (0.2-1.0); Potassium 4.2 mmol/L (3.5-5.1); Protein, Total 5.6 g/dL (6.4-8.2)
[2018-12-19] MEDS: SUCRALFATE 1 GM TABLET PO SCH ×4 (08:05→22:00)
[2018-12-19] MEDS: ENOXAPARIN 40 MG/0.4 ML SQ SCH (08:05)
[2018-12-19] MEDS: PANTOPRAZOLE 40 MG INJ IVP SCH ×2 (08:05→21:57)
[2018-12-19] MEDS: ONDANSETRON 4 MG/2 ML VIAL IV PRN ×2 (10:40→16:10)
[2018-12-19] MEDS: NA CHLORIDE 0.9% 1,000 ML IV SCH ×2 (10:41→17:00)
[2018-12-19] MEDS: PIPER/TAZO/NS 3.375gm 3.375 GM/100 ML BAG IVPB SCH (16:48)
--- NOTE | 2018-12-19 18:51 | PN ---
Date of Progress Note: 12/19/2018 Subjective: The patient seen and examined. Chart reviewed and case discussed with RN. The patient still having significant amount of pain, however, did not suffer from going downstairs to smoke. The patient was counseled. Medications: List reviewed. Physical Examination: Vital Signs: Temperature 97.5, heart rate 58, blood pressure 128/83, respirations 18, O2 97% on room air. General: Awake, alert, oriented x3. Mild distress due to pain. CV: S1-S2. No murmurs. Respiratory: Moving air well bilaterally. No wheezing. Gastrointestinal: Abdomen is soft. Tendern ess to palpation in the right upper quadrant and epigastric region. No rebound or guarding. Bowel s ounds positive. Extremities: No clubbing, cyanosis, or edema. Neurologic: Nonfocal. Laboratory Data: Sodium 142, potassium 4.2, chloride 109, CO2 of 30, BUN 8, creatinine 1.03, glucose 98, calcium 7.9, albumin 3. WBC 5.4, H and H 13.4 and 38.1, platelets 227, neutrophils 52%. Assessment And Plan: A 48-year-old male with: 1.Acute pancreatitis of unclear etiology. The patient unable to tolerate soft diet. We will contin ue with liquid diet. We will touch base with GI. 2.Epigastric and right upper quadrant abdominal pain. We will continue with IV PPI and Carafate. T he patient will need EGD as an outpatient. 3.Biliary dyskinesia. The patient is scheduled for cholecystectomy by Dr. Ba. Continue with I V morphine. 4.Non-intractable nausea, vomiting. Continue antiemetics, improving. 5.Atypical chest pain, acute coronary syndrome ruled out. 6.Fatty liver disease. Workup is underway. 7.Overweight, BMI 29. 8.Mixed hyperlipidemia. 9.Hypocalcemia, replace and monitor. 10.Deep venous thrombosis prophylaxis with Lovenox. Plan: Anticipate cholecystectomy. /LUIS Voice ID: [id number] Report ID: [id number]
[2018-12-19 22:55] LABS: HBsAG Nonreactive (Nonreactive); Hepatitis A IgM Antibody Nonreactive
[2018-12-20] MEDS: NA CHLORIDE 0.9% 1,000 ML IV SCH ×4 (00:50→23:00)
[2018-12-20] MEDS: PIPER/TAZO/NS 3.375gm 3.375 GM/100 ML BAG IVPB SCH ×3 (00:50→16:46)
[2018-12-20 06:01] LABS: Albumin 3.1 g/dL (3.4-5.0); Bilirubin Total 0.2 mg/dL (0.2-1.0); Potassium 4.4 mmol/L (3.5-5.1); Protein, Total 5.9 g/dL (6.4-8.2)
[2018-12-20] MEDS: MORPHINE 2 MG/ML SYR IV PRN ×3 (06:31→19:16)
[2018-12-20] MEDS: SUCRALFATE 1 GM TABLET PO SCH ×4 (07:30→20:58)
[2018-12-20] MEDS: PANTOPRAZOLE 40 MG INJ IVP SCH ×2 (08:32→21:05)
[2018-12-20] MEDS: ENOXAPARIN 40 MG/0.4 ML SQ SCH (08:32)
[2018-12-20] MEDS: BUPIVACAINE 0.25% PF 10 ML VIAL ONE ×2 (13:17→13:24)
[2018-12-20] MEDS ORDERED: Ringers Lactate 1,000 ML IV ONE (13:18)
[2018-12-20] MEDS ORDERED: FENTANYL CITR 100 MCG/2 ML ONE (13:41)
[2018-12-20] MEDS ORDERED: ROCURONIUM 50 MG/5 ML VIAL IV ONE (13:41)
[2018-12-20] MEDS ORDERED: MIDAZOLAM HCL 2 MG/2 ML INJ ONE (13:41)
[2018-12-20] MEDS ORDERED: PROPOFOL 200 MG/20 ML VIAL IV ONE (13:41)
[2018-12-20] MEDS ORDERED: ONDANSETRON 4 MG/2 ML VIAL ONE (13:41)
[2018-12-20] MEDS ORDERED: LIDOCAINE 2% MPF 5 ML VIAL ONE (13:41)
--- NOTE | 2018-12-20 16:21 | PN ---
Date of Progress Note: 12/20/2018 Subjective: The patient seen and examined. Chart reviewed and case discussed with RN and Dr. Julio mcmanus. The patient is scheduled for cholecystectomy today. Medications: List reviewed. Physical Examination: Vital Signs: Temperature 97.7, heart rate 69, blood pressure 134/69, respirations 16, O2 95% on room air. General: Awake, alert, and oriented x3, not in any acute distress. CV: S1 and S2. Regular rate and rhythm. Peripheral pulses present. Respiratory: Moving air well bilaterally. No wheezing. Gastrointestinal: Abdomen is soft. Minimal tenderness to palpation. No rebound or guarding. Bowel sounds positive. Extremities: No clubbing, cyanosis, or edema. Neurologic: Nonfocal. Laboratory Data: Sodium 144, potassium 4.4, chloride 110, CO2 30, BUN 9, creatinine 1.11, glucose 98 , calcium 8.4. Assessment And Plan: A 48-year-old male with: 1.Acute pancreatitis, resolving. The patient unable to tolerate diet. 2.Epigastric and right upper quadrant abdominal pain. Continue with IV PPI and Carafate. EGD as ou tpatient. 3.Biliary dyskinesia. Scheduled for cholecystectomy today by Dr. Ba. 4.Non-intractable nausea and vomiting, improved. Continue antiemetics. 5.Atypical chest pain, acute coronary syndrome ruled out. 6.Fatty liver disease. Workup underway. GI on board. 7.Overweight, BMI 29. 8.Mixed hyperlipidemia. Diet and exercise regimen change, lifestyle changes prior to initiating sta tin, especially in the acute hospital setting. 9.Hypocalcemia. Replace and monitor. 10.Deep venous thrombosis prophylaxis with Lovenox. Plan: Cholecystectomy scheduled for today. /LUIS Voice ID: [id number] Report ID: [id number]
[2018-12-20] MEDS: HYDROCODONE/APAP 7.5/325 MG TAB PO PRN (21:16)
[2018-12-21] MEDS: PIPER/TAZO/NS 3.375gm 3.375 GM/100 ML BAG IVPB SCH ×4 (01:20→23:55)
[2018-12-21] MEDS: MORPHINE 2 MG/ML SYR IV PRN ×4 (06:00→17:43)
[2018-12-21] MEDS: SUCRALFATE 1 GM TABLET PO SCH ×4 (07:30→20:04)
[2018-12-21] MEDS ORDERED: Ringers Lactate 1,000 ML IV ONE ×2 (08:20→10:13)
[2018-12-21] MEDS ORDERED: PROPOFOL 200 MG/20 ML VIAL IV ONE (08:50)
[2018-12-21] MEDS ORDERED: MIDAZOLAM HCL 2 MG/2 ML INJ ONE ×2 (08:50→10:51)
[2018-12-21] MEDS ORDERED: ONDANSETRON 4 MG/2 ML VIAL ONE (08:50)
[2018-12-21] MEDS ORDERED: LIDOCAINE 2% MPF 5 ML VIAL ONE (08:50)
[2018-12-21] MEDS ORDERED: FENTANYL CITR 250 MCG/5 ML ONE (08:50)
[2018-12-21] MEDS ORDERED: ROCURONIUM 50 MG/5 ML VIAL IV ONE (08:53)
[2018-12-21] MEDS ORDERED: BUPIVACA 0.25%/EPI 0.0005% MDV 50 ML VIAL ONE (08:53)
[2018-12-21] MEDS: NA CHLORIDE 0.9% 1,000 ML IV SCH ×2 (09:00→19:00)
[2018-12-21] MEDS ORDERED: GLYCOPYRROLATE 0.2 MG/ML SYR ONE (09:41)
--- NOTE | 2018-12-21 09:46 | P.OP ---
Preoperative diagnosis: Biliary Dyskinesia / Chronic Cholecystitis Postoperative diagnosis: Biliary Dyskinesia / Chronic Cholecystitis Primary procedure: Laparoscopic Cholecystectomy Anesthesia: GETA + Local Estimated blood loss: <2cc Specimen: Gallbladder Findings: Blue Dome Gallbladder - distended Complications: None Transferred to: Recovery Room Condition: Good
[2018-12-21] MEDS: MORPHINE 4 MG/ML SYR ONE ×4 (10:06→10:27)
[2018-12-21] MEDS: HYDROMORPHONE HCL 2 MG/ML inj ONE ×4 (10:20→10:33)
[2018-12-21] MEDS ORDERED: MEPERIDINE HCL 50 MG/ML AMP ONE (10:26)
[2018-12-21] MEDS: HYDROMORPHONE HCL 1 MG/ML INJ ONE ×2 (10:47→10:55)
[2018-12-21] MEDS: PANTOPRAZOLE 40 MG INJ IVP SCH ×2 (12:00→20:04)
[2018-12-21] MEDS: HYDROCODONE/APAP 7.5/325 MG TAB PO PRN ×2 (12:00→20:04)
--- NOTE | 2018-12-21 12:46 | OP ---
Date of Procedure: 12/21/2018 Surgeon: Demetrio Ba MD, Preoperative Diagnosis: Biliary dyskinesia/chronic cholecystitis. Postoperative Diagnosis: Biliary dyskinesia/chronic cholecystitis. Procedure Performed: Laparoscopic cholecystectomy. Anesthesia: General endotracheal plus local with 0.5% Marcaine with epinephrine. Estimated Blood Loss: Less than 2 cc. Specimen: Gallbladder. Findings: Blue dome gallbladder, which was slightly distended. Complications: None. Disposition: Transferred to recovery room in good condition. Procedure In Detail: After informed consent was obtained, the patient was brought to the operating r oom, prepped and draped in the usual sterile fashion. After adequate anesthesia was achieved, suprau mbilical area was anesthetized with 0.25% Marcaine and sharply incised. A 5-mm trocar was introduced in the abdomen without evidence of complication. Insufflation was obtained to 15 mmHg at this time. The area was inspected. There was no injury to vital structure upon entry into the abdomen. The patient was positioned in head up position. Additional trocar site was chosen in the epigastrium . This was similarly anesthetized, sharply incised. A 5-mm trocar was introduced in the abdomen wit hout evidence of complication. Additional trocar site was chosen in the right upper quadrant. This was similarly anesthetized and sharply incised. A 5-mm trocar was introduced in the abdomen without evidence of complication. The umbilical trocar then up-sized to a 12 mm under direct visualization w ithout evidence of complication. The patient was positioned in head up right-side up position. [employer]Score heted grasper was used to grasp the patient's gallbladder, placed it towards the patient's right shou lder. The omental attachments were taken off the anterior surface of the gallbladder and dissection continued down to the Hal pouch of the gallbladder down to expose both cystic duct and cystic ar saurabh, which were skeletonized after blunt and sharp dissection. After this was exposed, the critical view of safety was obtained and verified at this time. A titanium clip store warehouse associate was then brought int o the field and the deep cystic duct and cystic artery were both doubly ligated on the proximal side, singly on the distal side. Endo Mile were then used to ligate these 2 above structures. After is was completed, the gallbladder was removed the hepatic fossa using electrocautery without evidence of complication. The gallbladder was removed intact and placed in EndoCatch bag, removed through th e umbilical trocar, passed off for pathologic examination. The abdomen was then reinspected after in sufflation was re-obtained for proper hemostasis and good anatomic position. The clips which were ve rified at this time. No additional hemostatic maneuvers were required. The area was copiously irrig ated multiple times until completely clear and the patient was positioned in neutral position. The u mbilical trocar was then removed. The umbilical trocar site was closed using a Toan-Barbara sutur e passer with 0 Vicryl in interrupted fashion with good approximation of tissues. The abdomen was th en completely desufflated under direct visualization without evidence of complication. All trocars w ere removed. All skin incisions were copiously irrigated and closed with a 4-0 Monocryl in a running fashion. Dermabond was placed over top. The patient tolerated the procedure well without evidence of complication and transferred to PACU in good condition. All counts were correct at the end of the case. CARLEY/LUIS Voice ID: [id number] Report ID: [id number]
--- NOTE | 2018-12-21 17:36 | P.PN ---
Subjective Date of Service: 12/21/18 Chief Complaint: ABDOMINAL PAIN/ RIGHT UPPER QUADRANT TENDERNESS /CHEST PAIN Patient seen and examined at bedside. No family at bedside. Chart reviewed and case discussed with nursing staff. Reports improved pain, though still complaining of pain after surgery. Nausea vomiting and resolved. Eating a little bit of Jell-O without any discomfort. Review of Systems 10-point ROS is otherwise unremarkable Physical Examination - Vital Signs Temperature: 97.5 F Blood Pressure: 132/74 Pulse: 63 Respirations: 16 Pulse Ox (%): 98 - Physical Exam General: Alert, In no apparent distress, Oriented x3 HEENT: Atraumatic, PERRLA, EOMI Neck: Supple, JVD not distended Respiratory: Clear to auscultation bilaterally, Normal air movement Cardiovascular: Regular rate/rhythm, Normal S1 S2 Gastrointestinal: Normal bowel sounds, No tenderness Musculoskeletal: No tenderness Integumentary: No rashes Neurological: Normal speech, Normal tone, Normal affect Lymphatics: No axilla or inguinal lymphadenopathy Assessment And Plan - Plan A 48-year-old male with: Acute pancreatitis, resolving. The patient tolerating clear liquid diet Continue IV fluids Pain control Epigastric and right upper quadrant abdominal pain. Continue with IV PPI and Carafate. EGD as outpatient. Biliary dyskinesia. Status post cholecystectomy 12/21/[address] Ba. Non-intractable nausea and vomiting, resolved Continue antiemetics as needed. Atypical chest pain, acute coronary syndrome ruled out. Fatty liver disease. Workup underway. GI on board. Overweight, BMI 29. Mixed hyperlipidemia. Diet and exercise regimen change, lifestyle changes prior to initiating statin, especially in the acute hospital setting. Hypocalcemia. Replace and monitor. Deep venous thrombosis prophylaxis with Lovenox. Plan: Status post cholecystectomy. Clear liquid diet, advance as tolerated. Discharge patient once tolerating GI soft diet.
[2018-12-21 19:06] LABS: Alpha Fetoprotein-Tumor Marker 1.9 ng/mL (<6.1)
[2018-12-21] MEDS: HYDROMORPHONE HCL 0.5 MG/0.5 ML INJ IV PRN (22:30)
[2018-12-22] MEDS: HYDROMORPHONE HCL 0.5 MG/0.5 ML INJ IV PRN (04:09)
[2018-12-22] MEDS: NA CHLORIDE 0.9% 1,000 ML IV SCH ×3 (04:10→16:00)
[2018-12-22] MEDS: HYDROCODONE/APAP 7.5/325 MG TAB PO PRN ×2 (05:50→15:59)
[2018-12-22] MEDS: PIPER/TAZO/NS 3.375gm 3.375 GM/100 ML BAG IVPB SCH ×2 (08:09→16:02)
[2018-12-22] MEDS: MORPHINE 2 MG/ML SYR IV PRN ×2 (08:11→12:58)
[2018-12-22] MEDS: PANTOPRAZOLE 40 MG INJ IVP SCH ×2 (08:11→21:43)
[2018-12-22] MEDS: SUCRALFATE 1 GM TABLET PO SCH ×4 (08:11→21:43)
--- NOTE | 2018-12-22 11:53 | P.PN ---
Subjective Date of Service: 12/22/18 Chief Complaint: ABDOMINAL PAIN/ RIGHT UPPER QUADRANT TENDERNESS /CHEST PAIN Patient seen and examined at bedside. No family at bedside. Chart reviewed and case discussed with nursing staff. Reports that pain seems to be worse than prior to surgery. Complaining of abdominal distension. Reports no bowel movements today. He received Leadore, Dilaudid and morphine this morning for pain control. Continues to complain of pain. But he is tolerating clear liquid diet without any nausea or vomiting. Hemodynamically, he remained stable. Nausea vomiting and resolved. Review of Systems 10-point ROS is otherwise unremarkable Physical Examination - Vital Signs Temperature: 98.0 F Blood Pressure: 139/85 Pulse: 61 Respirations: 16 Pulse Ox (%): 96 - Physical Exam General: Alert, Oriented x3, Moderate distress HEENT: Atraumatic, PERRLA, EOMI Neck: Supple, JVD not distended Respiratory: Clear to auscultation bilaterally, Normal air movement Cardiovascular: Regular rate/rhythm, Normal S1 S2 Gastrointestinal: Normal bowel sounds, Other (Incision site is clear, dry intact ), Distended, Tenderness Musculoskeletal: No tenderness Integumentary: No rashes Neurological: Normal speech, Normal tone, Normal affect Lymphatics: No axilla or inguinal lymphadenopathy Assessment And Plan - Plan A 48-year-old male with: Acute pancreatitis, resolving. The patient tolerating clear liquid diet Discontinue IV fluids. Pain control - patient seems to be in more pain compared to his exam. When I entered the room, patient in no acute distress but when asked about pain, complains of pain that is worse than prior to surgery. Epigastric and right upper quadrant abdominal pain. Continue with IV PPI and Carafate. EGD as outpatient. Repeat CT scan with oral contrast ordered for worsening abdominal pain. Biliary dyskinesia. Status post cholecystectomy 12/21/[address] Ba. Non-intractable nausea and vomiting, resolved Continue antiemetics as needed. Atypical chest pain, acute coronary syndrome ruled out. Fatty liver disease. Workup underway. GI on board. Overweight, BMI 29. Mixed hyperlipidemia. Diet and exercise regimen change, lifestyle changes prior to initiating statin, especially in the acute hospital setting. Hypocalcemia. Replace and monitor. Deep venous thrombosis prophylaxis with Lovenox. Plan: Status post cholecystectomy. Clear liquid diet, advance as tolerated. Discharge patient once tolerating GI soft diet, likely in the next 24 hr.
--- NOTE | 2018-12-22 12:16 | RAD REPORT ---
EXAM DESCRIPTION: CT - Abdomen W Contrast CLINICAL HISTORY: AB pain, distention post lap raina Abdominal pain COMPARISON: Abdomen Pelvis W Contrast dated 12/15/2018; Hepatobiliary System W/ Ph dated 12/17/2018; Abdomen Exam Complete dated 12/16/[address] scans are performed using dose optimization technique as appropriate and may includ e automated exposure control or mA/KV adjustment according to patient size. FINDINGS: Linear subsegmental atelectasis is present in both lung bases, greater on the right. Minimal pneumobilia is present in the liver. Cholecystectomy clips are seen. No unusual or unexpected finding in the gallbladder fossa. No liver mass. No intrahepatic biliary dilatation. The spleen, bermudez creas, adrenal glands and kidneys are within normal limits. No free fluid, bowel obstruction or free air. Small fat containing umbilical hernia. Nonspecific distention of the colon is seen. No significant bony finding. IMPRESSION: No worrisome postoperative finding seen. Mild colonic distention with fluid could indicate a mild ileus.
[2018-12-22] MEDS: MAGNESIUM HYDROXIDE 8% 30 ML PO PRN (21:42)
[2018-12-22] MEDS: HYDROCODONE/APAP 10/325 TAB PO PRN (21:43)
[2018-12-23] MEDS ORDERED: HYDROMORPHONE HCL 0.5 MG/0.5 ML INJ IV ONE (00:40)
[2018-12-23] MEDS: PIPER/TAZO/NS 3.375gm 3.375 GM/100 ML BAG IVPB SCH ×2 (01:05→10:39)
[2018-12-23 07:04] VITALS: O2SAT 97
[2018-12-23] MEDS: HYDROCODONE/APAP 10/325 TAB PO PRN (08:12)
[2018-12-23] MEDS: PANTOPRAZOLE 40 MG INJ IVP SCH (08:13)
[2018-12-23] MEDS: SUCRALFATE 1 GM TABLET PO SCH ×2 (08:13→11:55)
[2018-12-23] MEDS: NA CHLORIDE 0.9% 1,000 ML IV SCH (08:17)
--- NOTE | 2018-12-23 11:20 | P.PN ---
Subjective Date of Service: 12/23/18 Chief Complaint: ABDOMINAL PAIN/ RIGHT UPPER QUADRANT TENDERNESS /CHEST PAIN Subjective: Improving (Patient doing well, pain improved, +bm) Physical Examination - Vital Signs Temperature: 97.4 F Blood Pressure: 170/85 Pulse: 68 Respirations: 18 Pulse Ox (%): 99 - Physical Exam General: Alert, In no apparent distress, Cooperative Gastrointestinal: Other (soft, mild appropriate TTP, ND, incisions clean and dry ) Assessment And Plan - Plan - abdominal pain minimal improvement - DC home from surgical standpoint s/p lap raina POD 2
[2018-12-23 12:15] VITALS: TEMP 98.4
[2018-12-23 13:08] VITALS: BP 130/87
[2018-12-28 17:10] LABS: Hep C Virus RNA (PCR)log <1.18 log IU/mL
== END 2018-12-23 13:49 | disposition home or self-care (01) | DRG 419 ==
LOC: ER 19:18 → INTOOBSV 22:56 → ERHOLD 22:56 → 4TH 23:43 → OBSVTOIN 12-17 13:58
PROVIDERS: ADMIT Hospitalist; ATTEND Family Medicine
PROC: 0FT44ZZ Resection of Gallbladder, Percutaneous Endoscopic Approach (ICD-10-PCS; principal; 2018-12-21 09:00)
DX: K85.90 Acute pancreatitis without necrosis or infection, unspecified (principal); K81.1 Chronic cholecystitis; K82.8 Other specified diseases of gallbladder; R07.89 Other chest pain; E66.3 Overweight; Z68.29 Body mass index [BMI] 29.0-29.9, adult; K76.0 Fatty (change of) liver, not elsewhere classified; E83.51 Hypocalcemia; E78.2 Mixed hyperlipidemia
CPT/HCPCS: 36415; 74160; 74177; 76700; 76705; 78227; 80048; 80053; 80061; 80074; 80076; 81003; 82103; 82105; 82390; 82728; 83540; 83690; 83735; 84100; 84466; 84484; 85025; 85610; 85730; 86038; 86255; 87522; 88304; 93005; 96361; 96374; 96375; 99285; A9537; C9113; G0378; J1170; J1650; J2175; J2250; J2270; J2405; J2543; J2550; J2704; J2765; J2805; J3010; J7030; Q9967